=== PATIENT | male | born 1975 | race Caucasian/White ===

== ENCOUNTER 2024-10-25 12:32 | Inpatient (IN) | payer OTHER ==
[2024-10-25] MEDS ORDERED: ACETAMINOPHEN 325 MG TABLET (FP) PO PRN (13:12)
[2024-10-25] MEDS ORDERED: ONDANSETRON *ODT* 4 MG TABLET SL PRN (13:12)
[2024-10-25] MEDS ORDERED: MAGNESIUM HYDROX 2400MG/30ML ORAL SUSPENSION 30 ML CUP PO PRN (13:12)
[2024-10-25] MEDS ORDERED: BENZOCAINE/MENTHOL (CHLORASEPTIC ) LOZENGE MM PRN (13:12)
[2024-10-25] MEDS ORDERED: LOPERAMIDE HCL 2 MG CAPSULE PO PRN (13:12)
[2024-10-25] MEDS ORDERED: MAG HYDROX/AL HYDROX/SIMETH 30 ML UNIT-DOSE CUP PO PRN (13:12)
[2024-10-25] MEDS ORDERED: IBUPROFEN 600 MG TABLET (FP) PO PRN (13:12)
[2024-10-25] MEDS ORDERED: IBUPROFEN 400 MG TABLET (FP) PO PRN (13:12)
[2024-10-25] MEDS ORDERED: BISMUTH SUBSALICYLATE 524 MG/30 ML PO PRN (13:12)
[2024-10-25] MEDS ORDERED: guaiFENesin 600 MG TABLET.ER (FP) PO PRN (13:12)
[2024-10-25] MEDS ORDERED: NALOXONE (NARCAN) HCL 4 MG/0.1 ML SPRAY NS PRN (13:12)
[2024-10-25] MEDS ORDERED: BENZONATATE 200 MG CAPSULE PO PRN (13:12)
[2024-10-25] MEDS ORDERED: POLYETHYLENE GLYCOL (HEALTHYLAX) 3350 17 GM PACKET PO PRN (13:12)
[2024-10-25] MEDS ORDERED: DICYCLOMINE HCL 10 MG CAPSULE PO PRN (13:12)
[2024-10-25 13:22] VITALS: BMI 27.8
[2024-10-25] MEDS: HYDROCHLOROTHIAZIDE 25 MG TABLET (FP) PO SCH (15:40)
[2024-10-25] MEDS ORDERED: HYDROCHLOROTHIAZIDE 12.5 MG CAPSULE (FP) ONE (15:44)
[2024-10-25] MEDS: NALTREXONE HCL 50 MG TABLET PO ONE (17:58)
[2024-10-25] MEDS: METOPROLOL TARTRATE 50 MG TABLET (FP) PO ONE (18:48)
[2024-10-25] MEDS: THIAMINE 100 MG TABLET PO SCH (22:25)
[2024-10-25] MEDS: MELATONIN 5 MG TABLETS PO SCH (22:25)
[2024-10-25] MEDS: METHOCARBAMOL 500 MG TABLET PO PRN (22:26)
[2024-10-26] MEDS: PRENATAL VITAMINS W/ FOLIC ACID TABLET (FP) PO SCH (09:51)
[2024-10-26] MEDS: NALTREXONE HCL 50 MG TABLET PO SCH (09:51)
[2024-10-26] MEDS ORDERED: chlordiazePOXIDE HCL 25 MG CAPSULE PO PRN (10:32)
[2024-10-26] MEDS: chlordiazePOXIDE HCL 25 MG CAPSULE PO SCH (12:16)
[2024-10-26 12:23] LABS: HEMATOCRIT 49.1 % (40.1-51.0); HEMOGLOBIN 16.4 g/dL (13.7-17.5); MCHC 33.4 g/dl (32.3-36.5); MEAN PLT VOLUME 10.5 fl (9.4-12.4); PLATELET COUNT 189 x10^3/uL (163-337); RDW 11.9 % (12.2-16.1)
[2024-10-26 12:29] LABS: POTASSIUM 3.8 mmol/L (3.5-5.1)
[2024-10-26 12:46] LABS: CALCIUM 8.9 mg/dL (8.5-10.1)
[2024-10-26 12:47] LABS: ALBUMIN 4.3 g/dl (3.4-5.0); BLOOD UREA NITROGEN 11.3 mg/dL (7-18)
[2024-10-26 12:50] LABS: CREATININE 0.9 mg/dL (0.55-1.3)
[2024-10-26 12:51] LABS: TOT PROT 7.6 g/dl (6.4-8.2)
[2024-10-28] MEDS: chlordiazePOXIDE HCL 25 MG CAPSULE PO SCH (05:40)
[2024-10-28] MEDS: hydrOXYzine PAMOATE 25 MG CAPSULE (FP) PO PRN (17:15)
[2024-10-29] MEDS ORDERED: chlordiazePOXIDE HCL 10 MG CAPSULE PO PRN
[2024-10-29] MEDS: chlordiazePOXIDE HCL 10 MG CAPSULE PO SCH (05:30)
[2024-10-29 09:25] VITALS: BP 126/97; PULSE 100; RESP 16; TEMP 97.7
[2024-10-30] MEDS ORDERED: chlordiazePOXIDE HCL 10 MG CAPSULE PO SCH (05:00)
[2024-10-31] MEDS ORDERED: chlordiazePOXIDE HCL 10 MG CAPSULE PO ONE (05:00)
== END 2024-10-29 10:35 | disposition left against medical advice (07) | DRG 770 ==
LOC: YASAS 12:32 → Y6N 15:42
PROVIDERS: ADMIT Allergy & Immunology; ATTEND Allergy & Immunology
PROC: HZ2ZZZZ Detoxification Services for Substance Abuse Treatment (ICD-10-PCS; principal; 2024-10-25)
DX: F10.230 Alcohol dependence with withdrawal, uncomplicated (principal); F10.282 Alcohol dependence with alcohol-induced sleep disorder; F41.9 Anxiety disorder, unspecified; F32.A Depression, unspecified; Z87.891 Personal history of nicotine dependence
CPT/HCPCS: 36415; 80053; 80305; 80307; 85027; 86780; 93005; 93010